=== PATIENT | female | born 1970 | race African-American/Black ===

== ENCOUNTER 2024-11-19 18:33 | Inpatient (IN) | payer MEDICAID ==
[~2024-11-19] VITALS: Ht 154.9 cm; Wt 61.7 kg
[2024-11-19 19:48] LABS: BASOPHILS % 1.1 % (0.0-2.0); EOSINOPHILS % 2.0 % (0.0-5.0); HEMATOCRIT. 38.8 % (36.0-48.0); HEMOGLOBIN. 13.0 g/dL (12.0-16.0); LYMPHOCYTES % 35.1 % (20.0-50.0); MEAN PLATELET VOLUME 9.5 fl (7.4-10.4); MONOCYTES % 6.5 % (2.0-8.0); NEUTROPHILS % 55.3 % (40.0-76.0); PLATELET 316 x1000/uL (130-400); RED BLOOD CELL COUNT 3.98 mill/uL (4.2-5.4); RED CELL DISTRIBUTION WIDTH 12.1 % (11.6-14.6)
[2024-11-19 20:00] LABS: INR 1.0
[2024-11-19 20:02] LABS: CREATININE 0.9 mg/dL (0.6-1.0)
[2024-11-19 20:03] LABS: UREA NITROGEN BLOOD 13 mg/dL (9-23)
[2024-11-19 20:04] LABS: TROPONIN I HIGH SENSITIVITY 6 ng/L (3.0-34)
[2024-11-19] MEDS: SODIUM CHLORIDE 0.9% 1,000 ML IV ONE (20:19)
[2024-11-19] MEDS: ACETAMINOPHEN 325MG TABLET PO ONE (22:36)
[2024-11-19] MEDS ORDERED: ONDANSETRON HCL 4MG/2ML INJ IV PRN (23:00)
[2024-11-19] MEDS ORDERED: GUAIFENESIN 200MG/10ML SUGAR FREE UDC PO PRN (23:00)
[2024-11-19] MEDS ORDERED: DOCUSATE SODIUM 100MG CAPSULE PO PRN (23:00)
[2024-11-19] MEDS ORDERED: ACETAMINOPHEN 325MG TABLET PO PRN ×2 (23:00)
[2024-11-19] MEDS ORDERED: IPRATROPIUM/ALBUTEROL 0.5-3(2.5)MG/3ML NEB HHN PRN (23:00)
[2024-11-19] MEDS: SODIUM CHLORIDE 0.45% 1,000 ML IV SCH (23:00)
[2024-11-19] MEDS ORDERED: KETOROLAC 30MG/ML VIAL IV PRN (23:15)
[2024-11-19] MEDS ORDERED: HYDRALAZINE 20MG/ML VIAL IV PRN (23:15)
[2024-11-20] VITALS (7 sets, daily range): BP systolic 135–176; BP diastolic 51–80; PULSE 53–76; RESP 17–20; TEMP 36.1–36.7; O2SAT 98–100
[2024-11-20] MEDS ORDERED: FOLI-43 PO (00:04)
[2024-11-20] MEDS ORDERED: ARIP15TA66 PO (00:04)
[2024-11-20] MEDS ORDERED: AMLO5TAB88 PO (00:04)
[2024-11-20] MEDS ORDERED: ARIP300S IM (00:04)
[2024-11-20] MEDS ORDERED: OMEP10CA5 PO (00:04)
[2024-11-20 00:19] LABS: ETHANOL BLOOD < 10 mg/dL (<10)
[2024-11-20 00:21] LABS: PHOSPHORUS 4.2 mg/dL (2.5-4.9)
[2024-11-20 00:44] LABS: ASPARTATE AMINOTRANSFERASE 14 IU/L (<34); BILIRUBIN DIRECT < 0.1 mg/dL (<=3.0)
[2024-11-20 00:45] LABS: BILIRUBIN TOTAL 0.3 mg/dL (0.1-1.0); PROTEIN TOTAL 6.4 g/dL (6.0-8.3)
[2024-11-20] MEDS: AMOXICILLIN/POTASSIUM CLAVULANATE 875/125MG TAB PO SCH (01:48)
[2024-11-20] MEDS: MAGNESIUM 2 G PREMIX 50 ML IV NR (01:49)
[2024-11-20] MEDS: MVI, ADULT NO.1 10 ML, FOLIC ACID 1 MG, THIAMINE HCL 100 MG in SODIUM CHLORIDE 0.9% 1,0... IV ONE (01:55)
[2024-11-20] MEDS: OXYMETAZOLINE HCL NASAL SPRAY 15ML BOTHNSTRLS SCH (02:24)
[2024-11-20 06:40] LABS: CREATININE 0.9 mg/dL (0.6-1.0); TRIGLYCERIDE 72 mg/dL (0-150)
[2024-11-20 06:41] LABS: LDL CHOLESTEROL 107 mg/dL (5-100); UREA NITROGEN BLOOD 17 mg/dL (9-23)
[2024-11-20 06:44] LABS: T4 FREE 1.08 ng/dL (0.89-1.76)
[2024-11-20 06:47] LABS: BASOPHILS % 0.4 % (0.0-2.0); EOSINOPHILS % 1.9 % (0.0-5.0); HEMATOCRIT. 37.2 % (36.0-48.0); HEMOGLOBIN. 12.2 g/dL (12.0-16.0); LYMPHOCYTES % 38.3 % (20.0-50.0); MEAN PLATELET VOLUME 9.9 fl (7.4-10.4); MONOCYTES % 7.3 % (2.0-8.0); NEUTROPHILS % 52.1 % (40.0-76.0); PLATELET 272 x1000/uL (130-400); RED BLOOD CELL COUNT 3.78 mill/uL (4.2-5.4); RED CELL DISTRIBUTION WIDTH 12.5 % (11.6-14.6)
[2024-11-20] MEDS: PANTOPRAZOLE 40MG DR TABLET PO SCH (08:33)
[2024-11-20] MEDS: AMLODIPINE 5MG TABLET PO SCH (08:33)
[2024-11-20 08:42] LABS: TROPONIN I HIGH SENSITIVITY 7 ng/L (3.0-34)
[2024-11-20 14:55] LABS: *AMPHETAMINES SCREEN URINE NEGATIVE (NEGATIVE); *BARBITURATES SCREEN URINE NEGATIVE (NEGATIVE); *BENZODIAZEPINES SCREEN URINE NEGATIVE (NEGATIVE); *COCAINE SCREEN URINE PRESUMPTIVE POSITIVE (NEGATIVE); CANNABINOID URINE SCREEN PRESUMPTIVE POSITIVE (NEGATIVE); ECSTASY MDMA SCREEN URINE NEGATIVE (NEGATIVE); METHADONE URINE SCREEN NEGATIVE (NEGATIVE); OPIATES URINE SCREEN NEGATIVE (NEGATIVE); PHENCYCLIDINE URINE SCREEN NEGATIVE (NEGATIVE)
[2024-11-20 15:08] LABS: CLARITY URINE CLEAR (CLEAR); COLOR URINE YELLOW (YELLOW); GLUCOSE URINE NEGATIVE (NEGATIVE); KETONES URINE NEGATIVE (NEGATIVE); LEUKOCYTE ESTERASE URINE 2+ (NEGATIVE); NITRITE URINE NEGATIVE (NEGATIVE); OCCULT BLOOD URINE NEGATIVE (NEGATIVE); PH URINE 6.5 (4.5-8.0); PROTEIN URINE NEGATIVE (NEGATIVE); SPECIFIC GRAVITY URINE 1.015 (1.005-1.030); UROBILINOGEN URINE 0.2 E.U./dL (0.2-1.0)
[2024-11-20 15:42] LABS: MUCUS URINE TRACE /lpf (< = 2+); SQUAMOUS EPITHELIAL CELL URINE 1+ /lpf (RARE/1+)
[2024-11-20 15:43] LABS: BACTERIA URINE TRACE
[2024-11-20 15:44] LABS: TRICHOMONAS URINE 1+
[2024-11-20 15:45] LABS: RBC URINE 0-2 /hpf (0-2)
[2024-11-20 16:20] LABS: TROPONIN I HIGH SENSITIVITY 10 ng/L (3.0-34)
[2024-11-21] VITALS: BP 154/64; PULSE 62; RESP 20; TEMP 36.2; O2SAT 98
[2024-11-21 04:00] VITALS: BP 152/84; PULSE 58; RESP 19; TEMP 36.4; O2SAT 98
[2024-11-21 06:54] LABS: CREATININE 1.0 mg/dL (0.6-1.0)
[2024-11-21 06:55] LABS: UREA NITROGEN BLOOD 14 mg/dL (9-23)
[2024-11-21 08:00] VITALS: BP 136/58; PULSE 60; RESP 18; TEMP 37.2; O2SAT 100
[2024-11-21] MEDS: THIAMINE HCL 100MG TABLET PO SCH (09:15)
[2024-11-21] MEDS: FOLIC ACID 1MG TABLET PO SCH (09:15)
[2024-11-21] MEDS: MULTIVITAMINS,THER W-MINERALS TABLET PO SCH (09:16)
[2024-11-21 12:00] VITALS: BP 168/72; PULSE 57; RESP 18; TEMP 37.1; O2SAT 99
[2024-11-21 16:00] VITALS: BP 147/75; PULSE 63; RESP 18; TEMP 36.8; O2SAT 100
[2024-11-21 20:00] VITALS: BP 139/69; PULSE 68; RESP 16; TEMP 36.6; O2SAT 99
[2024-11-22] VITALS: BP 142/76; PULSE 56; RESP 18; TEMP 36.6; O2SAT 98
[2024-11-22 04:00] VITALS: BP 149/84; PULSE 57; RESP 18; TEMP 36.6; O2SAT 97
[2024-11-22 08:20] VITALS: BP 132/69; PULSE 62; RESP 16; TEMP 36.7; O2SAT 98
[2024-11-22] MEDS ORDERED: AMLO5TAB88 MT (11:00)
[2024-11-22] MEDS ORDERED: DOCU-138 MT (11:11)
[2024-11-22 11:21] VITALS: BP 132/69; PULSE 62; TEMP 98.1; O2SAT 100
== END 2024-11-22 16:05 | disposition home or self-care (01) | DRG 422 ==
LOC: ER 18:33 → EDBEDREQ 19:35 → 8WST 22:21 → EDBEDREQ 22:23 → ENRESERV 22:38
PROVIDERS: ADMIT Internal Medicine; ATTEND Internal Medicine
DX: E86.0 Dehydration (principal); E87.0 Hyperosmolality and hypernatremia; I11.9 Hypertensive heart disease without heart failure; R55 Syncope and collapse; F10.20 Alcohol dependence, uncomplicated; J32.9 Chronic sinusitis, unspecified; K59.00 Constipation, unspecified; Y90.0 Blood alcohol level of less than 20 mg/100 ml; F17.210 Nicotine dependence, cigarettes, uncomplicated; Z59.01 Sheltered homelessness; Z79.899 Other long term (current) drug therapy; Z85.42 Personal history of malignant neoplasm of other parts of uterus; Z90.710 Acquired absence of both cervix and uterus
CPT/HCPCS: 36415; 71045; 80048; 80061; 80076; 80305; 80320; 81003; 82040; 83735; 83880; 83930; 84100; 84439; 84443; 84484; 85025; 85379; 93005; 93970; 97165; 99285; J3411; J3475; J3490; J7030; G0480